=== PATIENT | male | born 1945 | race Caucasian/White ===

== ENCOUNTER → 2021-07-24 15:35 | Outpatient (CLI) | payer OTHER, MEDICARE, SELFPAY ==
--- NOTE | 2021-07-24 15:54 | CT_ITS ---
STUDY: CT RIGHT FEMUR WITHOUT CONTRAST REASON FOR EXAM: Male, 75 years old. OSTEOARTHRITIS RADIATION DOSAGE (If Supplied By Facility): CTDIvol = ( 18.76 ) mGy, DLP = ( 1449.93 ) mGycm TECHNIQUE: Transaxial CT imaging of the femur was performed. Sagittal and coronal images were reconstructed. 3-D images were reconstructed. Individualized dose optimization techniques were used for this CT. COMPARISON: None. FINDINGS: There is diffuse demineralization of the femur. There is mild degenerative disease at the level of the right hip. There is significant degenerative disease at the level of the knee more severe along the medial joint compartment. There is chondrocalcinosis. There is degenerative disease of the tibiofemoral joint. No significant joint effusion. The visualized proximal tibia and fibula are unremarkable. Susceptibilities made of a small fat-containing right-sided inguinal hernia. There is diffuse nonspecific stranding of the subcutaneous fat from the mid-distal thigh to the ankle. Severe soft tissue swelling at the level of the ankle along the medial and lateral aspect. Vascular calcifications consistent with peripheral arterial disease. CT/Extremity Lower without Contra IMPRESSION: Degenerative disease at the level of the knee and hip as described. Diffuse soft tissue swelling/edema from the medial distal thigh to the ankle and more severe at the ankle. No acute fracture or subluxation involving the femur, tibia and fibula. Electronically Signed: Eli Felder MD at 3:37 EST , Service support ,
== END ==
PROVIDERS: Visit Provider Orthopaedic Surgery
DX: M17.11 Unilateral primary osteoarthritis, right knee (principal)
CPT/HCPCS: 73700

== ENCOUNTER 2021-08-25 17:11 | Observation (INO) | payer OTHER, MEDICARE, SELFPAY ==
[2021-07-24 16:06] LABS: Absolute Lymphocyte Count 2.73 X10^3/uL (0.83-4.51); Absolute Neutrophil Count 4.9 X10^3/uL (2.0-7.7); Basophil# 0.05 X10^3/uL; Basophil% 0.6 % (0-1); Eosinophils% 4.6 % (0-5); Hematocrit 35.6 % (40-54); Hemoglobin 11.4 g/dL (13.0-16.5); Lymphocyte # 2.73 X10^3/ul (0.83-4.51); Lymphocyte % 31.4 % (19-41); Mean Corpuscular Hgb 29.2 pg (27.0-32.0); Mean Platelet Vol. 9.6 fl (6.2-12.0); Monocyte# 0.61 X10^3/uL; NRBC Flagged by Analyzer 0 % (0-5); Neutrophil # 4.88 X10^3/uL (2.7-7.7); Neutrophil % 56.1 % (47-70); Platelet Count 284 K/mm3 (150-450); RBC Distribution Width CV 13.4 % (11.6-14.6); RBC Distribution Width SD 45.4 fl (35.1-43.9); Red Blood Count 3.91 M/mm3 (4.6-6.2); White Blood Count 8.7 K/mm3 (4.4-11.0)
[2021-07-24 16:32] LABS: Albumin, Serum 3.6 g/dL (3.2-5.0); Anion Gap 5 (5-15); BUN 36 mg/dL (7-18); BUN/Creat Ratio 20.9 RATIO (10-20); Calcium,Total 9.3 mg/dL (8.5-10.1); Chloride 107 mmol/L (98-107); Creatinine, Serum 1.72 mg/dL (0.70-1.30); EST Glomerular Filtration Rate 41 mL/min (>60); Est Glom Filt Rate - Afr Amer 50 mL/min (>60); Glucose 93 mg/dL (74-106); Potassium 4.4 mmol/L (3.5-5.1); Sodium Level 137 mmol/L (136-145)
[2021-07-24 16:44] LABS: Hemoglobin A1c 5.4 % (3.8-5.6)
[2021-08-25] VITALS (16 sets, daily range): BP systolic 121–159; BP diastolic 64–102; PULSE 68–89; RESP 16–18; TEMP 36.1–37.1; O2SAT 95–100; BMI 30.8
[2021-08-25] MEDS: Acetaminophen 500 MG Tablet 1000 MG PO ×3 (07:32→23:01)
[2021-08-25] MEDS: Scopolamine 1mg/72hr Patch 1 PATCH TD (07:36)
[2021-08-25] MEDS: Lactated Ringers 1,000 ML 15 ML IV (07:40)
--- NOTE | 2021-08-25 07:50 | RAD_ITS ---
STUDY: X-RAY - RIGHT KNEE REASON FOR EXAM: Male, 75 years old. New total knee arthroplasty. TECHNIQUE: 2 view(s) of the knee. COMPARISON: None. FINDINGS: There is a 3 component total knee arthroplasty in anatomic position. There are expected post-operative findings. There are no complications. No other significant abnormality is identified. RAD/Knee 1 or 2 Views IMPRESSION: Total knee arthroplasty in anatomic alignment without complications. Electronically Signed: Miguel Adamson MD at 13:55 EST , Service support ,
--- NOTE | 2021-08-25 09:10 | KNEE_PTH ---
PATIENT: JOSH GREENFIELD LOC: MS3 U#:[id number] AGE/SX: 75/M ROOM: [facility] RE08/25/[address]: Dr. Gerald Villalobos MD : 1945 BED: 1 DIS: 08/27/2021 SPEC #: [id number] RECD: 08/25/21 13:27 STATUS: MIKE MARLENE #: [id number] DHAVAL: 08/25/21 09:[address]: Júnior Guzman DEPT: SURGICAL PATHOLOGY RECD BY: Elvia Walker Tissues: Knee, NOS Procedures: Decalcification bone/plaque Surgery Specimen Level IV HEADER OPERATION: ERAS, total knee replacement robotic arm assist PRE-OP DIAGNOSIS: Primary osteoarthritis TISSUE SUBMITTED: Right knee bone MICROSCOPIC DIAGNOSIS Right knee bone, total knee replacement/resection: Pieces of bone with degenerative osteoarthritic changes. Fibroadipose tissue and fibroconnective tissue. SJ:elder 08/31/2021 MICROSCOPIC DESCRIPTION Slides are reviewed. GROSS DESCRIPTION Received is one container designated right knee bone. The specimen consists of multiple fragments of jorgensen-yellow bone measuring in aggregate 16 x 9 x 1.8 cm. Also in the specimen container are multiple fragments of yellow-white soft tissue measuring in aggregate 2 x 1 x 0.2 cm. A number of bony fragments contain articular surfaces consistent with tibial plateau and femoral condyle and displaying prominent osteophyte formation, eburnation, and bone erosion. [employer] Boat [employer] sections are submitted in two cassettes as follows: 1 - soft tissue, 2 - bone after decalcification. / AM:elder 08/25/21 TC:5 CPT: 68062, 27319
--- NOTE | 2021-08-25 10:21 | PCM.OPRPT ---
Report of Operation Date of Procedure: 08/25/21 Pre-Operative Diagnosis: OA right knee Post-Operative Diagnosis: same Surgery/Procedure Performed:: Right TKR Description of Surgical Findings:: Report of Operation Date of Procedure: 08/25/21 Preoperative Diagnosis: [ right ] knee primary osteoarthritis Postoperative Diagnosis: [right ] knee primary osteoarthritis Operation: Robotic Assisted Knee Total Arthroplasty, [right ] knee Surgeon: Dr Júnior Guzman DO [employer] Custodian: Miguel Mcdonnell PA-C Anesthesia: spinal Anesthesiologist: Peter Chaves M.D. Findings: Stable knee with good patella tracking Specimen(s): Bony cuts Complications: No intraoperative complications Estimated Blood Loss: 20 cc IV Fluids: 1000 cc crystalloid Implants Used: 1. Janessa Triathlon press-fit CR size 5 femur 2. [place] Triathlon size 6 tibia 3. 38 mm patella 4. 9 mm CS polyethylene Brief History Operative Indications: [ (75 y/o male) ] with history of [right ] knee osteoarthrosis with radiographic findings with loss of joint space, osteophyte formation and subchondral sclerosis. Failed conservative measures as mentioned in the H&P. Discussion of total knee arthroplasty as well as risk and benefits were discussed with the patient including but not limited to blood loss, DVTs, PEs, neurovascular damage, general risk of anesthesia including loss of life, and stiffness or instability were also discussed with the patient. Patient demonstrated understanding and was able to sign informed consent. Procedure: On the date of procedure, patient's [right ] lower extremity was marked in the preoperative area. The patient was then taken back to the operating room where that patient was placed on the table in the supine position. All bony prominences were identified and well-padded. Anesthesia assumed control of the C-spine and airway throughout the remainder of the procedure. A tourniquet was placed on the [ right ] upper thigh and the leg was prepped in a sterile fashion. The surgeon then scrubbed at this time. Upon reentering the room, the [ right ] lower extremity was draped in a standard orthopedic fashion. A timeout was then called and everyone agreed upon the side, the site, the procedure to be performed, patient's identity and antibiotics given. Esmarch bandage was used to exsanguinate the extremity and the tourniquet was placed up to 250 mmHg with the knee in flexion. A midline skin incision was made and a sharp dissection was taken down through skin, subcutaneous tissue and fat. The standard medial parapatellar incision was made and the patella was subluxed laterally. An appropriate deep MCL release was done and the fat pad was resected. Our attention was then directed to the patella. The patella was everted and a flat resection was made. The knee was then flexed up and 2 femoral pins were placed inside the incision and 2 tibial pins were placed outside the incision in the medial tibia bicortically. Once this was completed, the 2 checkpoints in the femur and tibia were placed. Knee was then flexed up and the bony landmarks were registered. Once the was completed, the knee taken through range of motion and manually stressed allowing us to plan for an appropriate tibial cut. The robotic arm was brought into the field sterilely and checkpoint and saw were registered. Based on the patient's deformity, the tibial cut was made in [2 degrees varus ]. At this time, the tensioner was then placed in the joint and ligament tension was checked at 90 degrees and full extension. Based on the patient's ligamentous tension, appropriate adjustments were made to the operative plan and ligament releases were done. Once we were happy with our operative plan with balanced flexion and extension gaps, our attention was directed to the femur. The robot was brought into the field sterilely and registered. Posterior condylar cuts, anterior chamfer cuts and anterior cuts were appropriately made for a [size 5 ] femur. When these were completed, the saws were switched out in the distal femoral and posterior chamfer cuts were made. Protecting the soft tissue throughout this time. A [ size 6 ] base plate was selected. The knee was flexed to 90 degrees and soft tissues and posterior osteophytes were removed from the joint. 40 cc of the periarticular injection was injected into the posterior medial corner of the joint. The appropriate trials were then placed on the femur and tibia. A trial polyethylene was trialed to ensure proper balancing and stability of the knee. The appropriate tibial internal rotation was then marked with a bovie. Our attention was then directed to the patella. The lug holes were drilled and the patella trial was placed. Patellar tracking was checked and deemed appropriate. Once we were happy, lug holes were drilled for the femur and trial components were removed. The tibia was subluxed and pinned into place and the keel was punched and drilled appropriately. Final components were verified and opened. The wound was copiously irrigated with normal saline. The components were impacted into place with the tibia, femur and finally the patella. The trial poly component was placed and the knee was placed in full extension. The tracking, alignment and balance were verified and a [9 mm CS ] polyethylene component was placed. Once the final components were placed an Irrisept lavage was performed and the wound was copiously irrigated with normal saline solution and the periarticular injection was given. the wound was closed in a layer-krishna fashion using #1 vicryl interrupted sutures for the arthrotomy, 2-0 interrupted vicryl suture for the subcuticular layer and remington for final skin closure. A sterile compressive dressing was then placed. The patient was then awakened from anesthesia, transferred to the [place] and transferred to the PACU for recovery. My physician assistant director of residence life was a vital part of this case. He was important in appropriate retraction during the case, and protection of soft tissues during bony cuts. His intimate knowledge of the case and my steps aided in safe and expedient completion of the procedure as well as appropriate position of the leg during the case. He was also vital in assisting with closure under my direct supervision. Due to the complexity of this case, robotic arm was used to assist in the surgery to improve accuracy and clinical outcomes. Post-op Plan: DVT ppx; ASA 81 mg BID, thigh high compression stockings Follow up: in office in 2 weeks for wound check PT: to start POD #0 at hospital, outpatient PT should be arranged. Preoperative antibiotic: Ancef 2 grams IV Júnior Guzman DO Surgeon: Júnior Guzman hem inspector: Miguel Mcdonnell Type of Anesthesia: Spinal Anesthesiologist: Peter Chaves Estimated Blood Loss (mL): 20 cc Fluids Replaced: 1000 cc crystalloid Admit VTE Documentation VTE Present on Admission: No VTE Mechan Device Prophylaxis: SCD's and Thigh High LITZY Hose VTE Pharm Prophylaxis ordered?: Yes
[2021-08-25 10:26] LABS: Bedside Glucose 77 mg/dL (70-110)
[2021-08-25] MEDS: Lactated Ringers 1,000 ML 125 ML IV (11:32)
[2021-08-25] MEDS: 0.9% Normal Saline 1,000 ML 100 ML IV (19:15)
[2021-08-26] MEDS: Acetaminophen 500 MG Tablet 1000 MG PO ×3 (05:48→21:54)
[2021-08-26] MEDS: oxyCODONE 5 MG Tablet PO ×2 (05:49→10:10)
--- NOTE | 2021-08-26 06:37 | PCM.PN.ORT ---
Subjective Subjective Doing well this morning. Stayed yesterday due to pain in the left knee and somnolence. Much better on both counts today. Objective Data Objective Data Vital Signs: Vital Signs Temp Pulse Resp BP Pulse Ox 98.4 F 88 16 148/76 H 98 08/25/21 22:41 08/25/21 22:41 08/25/21 22:41 08/25/21 22:41 08/25/21 22:41 Oxygen Flow Rate (L/min) 4 Oxygen Delivery Method Room Air Weight: 202 lb 13.204 oz Body Mass Index (BMI) 30.8 Intake & Output: Intake and Output for Last 24 Hours 08/24/21 08/25/21 08/26/21 23:59 23:59 23:59 Intake Total 2435.5 / 2435.5 1000 / 1000 Output Total 450 / 450 250 / 250 Balance 1985.5 / 1985.5 750 / 750 Lab / Micro Data Result Diagrams: 07/24/21 15:38 07/24/21 15:38 Labs: Laboratory Results - last 24 hr 08/25/21 07:10: POC Glucose 77 08/25/21 07:15: Magnesium 2.0 Micro: Microbiology 07/24/21 15:38 Swab (Method) Nasal Screen MRSA/MSSA - Final Radiography Diagnostic Testing: Radiology Impression Knee X-Ray 08/25/21 07:50 IMPRESSION: Total knee arthroplasty in anatomic alignment without complications. Electronically Signed: Miguel Adamson MD at 13:55 EST , Service support , Physical Exam Const alert and oriented x3 Constitutional Narrative: Sitting up in chair eating breakfast. General Appearance: cooperative Extremity normal capillary refill, no clubbing, cyanosis or edema and no calf tenderness Extremity Narrative: Negative Leonor's sign Right Lower Extremity: knee joint inspection (Mildly swollen as expected), neurovascular exam (intact) and special tests Neuro no sensory deficits noted Assessment & Plan Assessment/Plan (1) History of pain when walking: PLAN: PT this morning. Discharge this PM
[2021-08-26 09:24] VITALS: BP 123/68; PULSE 78; RESP 20; TEMP 37.3; O2SAT 98
[2021-08-26 11:50] VITALS: O2SAT 98
--- NOTE | 2021-08-26 13:22 | CASEMGMT ---
EDGAR BROOKE Assessment: Face to Face with pt for initial transition planning/care coordination assessment. EDGAR BROOKE introduced self and role at [facility], pt voices understanding and consents to assessment. Pt is A/O x4 and answers all questions appropriately at this time. Pt sitting up in chair with at bedside in no distress. Care providers, pharmacy, and demographics verified/updated. Admitting Dx: R TKR with Greg PCP:Garrett Specialists:Megan, ortho; Peggy and Henrietta, cardio Preferred Pharmacy: [facility] Retail Insurance: Aetna, Aetna MCR Prescription Benefit: yes LW/HPOA: Pt denies having a LW/DPOA and denies need for info regarding AD. LNOK: Dang Charlton, ; Shanda Gonsales, dtr Living Arrangements: Pt lives with in a two story house with 3 steps to enter with grab bars. Pt reports he was I in ADL's and denies concerns at home. Transportation: Pt drives self and denies concerns with transportation. Pt will transport pt to therapy. DME/HHC/SNF: Pt has a FWW, polar care and grab bars in the bathroom. Pt denies hx of HHC or SNF stays. Pt states no concerns with going home at time of dc. He has outpt therapy set up tomorrow at [facility] in [place]. Pt states no further concerns/needs. CM to follow. Advised pt to ask CM if any further question/concerns/needs arise, voices understanding. Pt Goal: Home with outpt therapy set up Plan: Home with outpt therapy set up
--- NOTE | 2021-08-26 15:33 | CASEMGMT ---
Social Work Note PT/OT updated this worker that pt cannot safely go home, pt needs SNF. SW in to speak with pt and pt's Dang. SW introduced self and role at [facility]. SW spoke with pt and Dang regarding SNF. Dang states they live [place] which is about [place] hours away from [place]. Dang states preferred provider would be [facility] in [place], [place]. Dang states it is an actual rehab facility and not a SNF. VINH explained that typically it is more difficult for pt's to get into rehab facilities as they have to have a qualifying diagnosis and pt's insurance likely will not approve inpatient rehab. Dang states next choice would be [facility] in [place], [place] which is a halfway. Third choice [facility] be [facility]. [facility] contact information [facility] [address] [place] [phone] Admission Director: Lorna. Referral has been faxed to [facility]. Plan: [facility] pending acceptance and pre-cert Anjali Schroeder SALES AND MARKETING EXECUTIVE, CREDIT CORRESPONDENCE CLERK
[2021-08-26 15:56] VITALS: BP 137/74; PULSE 103; RESP 16; TEMP 36.6; O2SAT 99
--- NOTE | 2021-08-26 16:04 | NURSING ---
Addendum entered by Angelina Seay 08/26/21 16:22: if you talk to him pt will have a conversation. Neuro checks performed and pt is A&Ox3. No neuro deficits noted. Francia Garnica, Charge Nurse also in to see pt. Megan Castro tried to call this nurse and got cut off. This nurse attempted to call Dr. Guzman back via the paddle dyeing machine operator and have not heard back. this nurse going to bladder scan pt and if Alfonso or Dr. Guzman do not call back, this nurse will attempt to get a hold of them again. Original Note: wanted to speak with this nurse. waiting in hallway in tears. Pt drowsy but awakens easily. states an hour after he took the 5mg oxycodone pain medicine that he was not as alert as he was this morning. This nurse does agree with . Pt mumbling, eyes closed, appears to be sleeping but if you talk to him
--- NOTE | 2021-08-26 16:25 | NURSING ---
Bladder scanned for 324 at this time. Alfonso Elizabeth here at this time.
--- NOTE | 2021-08-26 16:35 | NURSING ---
aware Dr. Maciel sent text by Angelina Garcia RN regarding consult. aware per erik gonzalez, he will also talk with dr. maciel
--- NOTE | 2021-08-26 16:42 | CASEMGMT ---
Social Work Note SW received message from Summer at [facility] stating pt's insurance will not pay for acute rehab as pt doesn't meet criteria for inpatient rehab. SW will make referral to [facility] (SNF) tomorrow. SW to continue to follow. Plan: SNF pending acceptance and pre-cert Anjali Schroeder EMERGENCY VEHICLE OPERATOR, TIRE LAYER
[2021-08-26 16:48] VITALS: BMI 30.8
[2021-08-26 17:11] LABS: Absolute Neutrophil Count 8.7 X10^3/uL (2.0-7.7); Basophil# 0.04 X10^3/uL; Basophil% 0.4 % (0-1); Eosinophil# 0.07 X10^3/uL; Eosinophils% 0.7 % (0-5); Hematocrit 28.1 % (40-54); Hemoglobin 9.4 g/dL (13.0-16.5); Lymphocyte % 9.3 % (19-41); Mean Corp Hgb Conc 33.5 g/dL (32-36); Mean Corpuscular Hgb 29.6 pg (27.0-32.0); Mean Corpuscular Volume 88.4 fL (80-94); Mean Platelet Vol. 9.5 fl (6.2-12.0); Monocyte# 0.89 X10^3/uL; Monocyte% 8.3 % (0-10); NRBC Flagged by Analyzer 0 % (0-5); Neutrophil # 8.71 X10^3/uL (2.7-7.7); Neutrophil % 81.1 % (47-70); Platelet Count 188 K/mm3 (150-450); RBC Distribution Width CV 12.6 % (11.6-14.6); Red Blood Count 3.18 M/mm3 (4.6-6.2); White Blood Count 10.7 K/mm3 (4.4-11.0)
--- NOTE | 2021-08-26 17:13 | EKG12_ITS ---
Test Reason : Blood Pressure : / mmHG Vent. Rate : 108 BPM Atrial Rate : 108 BPM P-R Int : 170 ms QRS Dur : 150 ms QT Int : 370 ms P-R-T Axes : 036 001 144 degrees QTc Int : 495 ms Sinus tachycardia Left bundle branch block Abnormal ECG Confirmed by ANEESH HOLDER, ARY ([id number]), assistant film editor MARC LANGLEY ([id number]) on 08/31/2021 10:28:34 AM Referred By: Júnior Guzman Confirmed By:ARY MELENDREZ MD
[2021-08-26 17:24] LABS: Anion Gap 8 (5-15); BUN 40 mg/dL (7-18); BUN/Creat Ratio 22.2 RATIO (10-20); Calcium,Total 8.9 mg/dL (8.5-10.1); Chloride 106 mmol/L (98-107); EST Glomerular Filtration Rate 39 mL/min (>60); Est Glom Filt Rate - Afr Amer 47 mL/min (>60); Estimated Creatinine Clearance 34.31 ml/min; Glucose 131 mg/dL (74-106); Potassium 4.5 mmol/L (3.5-5.1); Sodium Level 135 mmol/L (136-145)
[2021-08-26 18:00] VITALS: TEMP 37.8
--- NOTE | 2021-08-26 18:36 | NURSING ---
Pt with temp of 100.1. cold wash applied to neck and head. Gave pt I.S and made pt use at this time. Family in room with pt
--- NOTE | 2021-08-26 19:46 | PCS.PANDOC ---
PANDEMIC DOCUMENTATION INITIATED: Date: 04/20/2021 Time: 190
--- NOTE | 2021-08-26 20:25 | CON.PCM.HO_ITS ---
Assessment & Plan Assessment/Plan (1) Postoperative delirium: PLAN: Postoperative delirium Patient appears to have reacted to gabapentin and oxycodone therefore would avoid opiates except in low doses when highly needed Encourage PT and 3 meals daily Incentive spirometry coaching frequently. Does not exhibit focal deficits He has improved significantly from earlier today. EKG reviewed by me, no ST elevations. Is not appear septic at this time - if the patient develops temperatures of 100.4 on multiple checks would initiate a septic work-up with urine cultures blood cultures and chest x-ray Avoid nighttime interruptions for good sleep Continue to encourage visitors Hypertension - continue Beta dedra and valsartan HLD- Continue crestor Hx of Gout - Continue Feboxutat Normocytic Anemia - Likely chronic in nature - Monitor in outpatient setting HPI Consult Data Date of Consult: 08/26/21 HPI Narrative HPI Narrative: JOSH GREENFIELD, is a 75 M who is hospitalized after undergoing a total knee replacement yesterday. The patient does have a history of mild coronary artery disease and HTN. (organic chemistry professor recommended angiogram in 3-5 years per pt_) The patient had a successful knee replacement. He was given gabapentin 1 dose here in the hospital, and did receive 10 mg oxycodone for pain management. Today he was planned to be discharged however he was acting altered and his speech was garbled and so there was concern about possible etiologies and medication interactions versus a stroke. Patient does state that he does not use opiates or gabapentin at home and he did have a reaction to gabapentin in the past when he took 1 dose at home. Only pain medicine he uses at home is Tylenol. Does not smoke tobacco or drink heavily The patient's family history is reviewed but he does not have anything that is contributory to his current problem [facility] Medical History (Updated 08/26/21 @ 20:[address] Stiven Cazares MD) Alcohol use Arthritis Back pain Cancer Cardiology follow-up encounter High cholesterol History of edema History of pain when walking History of renal disease History of stress test Hypertension Injury of head and neck Loss of hearing Pain Smoker Wears glasses Home Medications Beet Root 2 cap PO/SL DAILY 08/03/21 [History Last Taken Unknown] Collagen Powder 1 dose pk PO/SL DAILY 08/03/21 [History Last Taken Unknown] ascorbic acid (vitamin C) [Vitamin C] 500 mg PO DAILY 08/03/21 [History Last Taken Unknown] cholecalciferol (vitamin D3) [Vitamin D3] 50 mcg PO DAILY 08/03/21 [History Last Taken Unknown] febuxostat 40 mg PO QHS 08/03/21 [History Last Taken Unknown] metoprolol tartrate 25 mg PO QHS 08/03/21 [History Last Taken Unknown] rosuvastatin [Crestor] 20 mg PO QHS 08/03/21 [History Last Taken Unknown] valsartan 20 mg PO QHS 08/03/21 [History Last Taken Unknown] vitamin B complex 1 cap PO DAILY 08/03/21 [History Last Taken Unknown] Allergy/AdvReac Type Severity Reaction Status Date / Time gabapentin AdvReac LOOPY Verified 08/25/21 07:27 scopolamine AdvReac Other Verified 08/25/21 17:20 Surgical History (Updated 08/03/21 @ 15:24 by Suma Reynolds) History of cardiac catheterization History of carpal tunnel surgery of left wrist History of carpal tunnel surgery of right wrist History of incision and drainage Hx of bladder repair surgery Hx of colonoscopy Hx of hernia repair Hx of left knee surgery Hx of right knee surgery Social History Smoking Status: Current some day smoker tobacco type: cigars ROS ROS Narrative no fevers, did have chills and sweats No CP, SOB, palpations, hematuria, cough, numbness or tingling or trouble seeing hearing swallowing, no seizures. Did have recent confusion. No trouble with thyroid problems. Physical Exam Narrative Pleasant interactive and fully aware of his surroundings and our conversation. Const alert General Appearance: cooperative HEENT normocephalic Eyes PERRL Eyes Narrative: Pupils round and equally reactive to light. Neck no lymphadenopathy Resp normal respiratory effort and clear to auscultation bilaterally Cardio regular rate and regular rhythm GI normal to inspection, nondistended, normoactive bowel sounds Extremity normal to inspection Neuro Neuro Narrative: Normal upper extremity strength with no tremors. Sensorium / Orientation: awake and alert Psych affect normal Lab / Micro Data Result Diagrams: 08/26/21 16:30 08/26/21 16:30 Labs: Laboratory Results - last 24 hr 08/26/21 16:30: WBC 10.7, RBC 3.18 L, Hgb 9.4 L, Hct 28.1 L, MCV 88.4, MCH 29.6, MCHC 33.5, RDW Std Deviation 41.0, RDW Coeff of Emilio 12.6, Plt Count 188, MPV 9.5, Immature Gran % (Auto) 0.200, Neut % (Auto) 81.1 H, Lymph % (Auto) 9.3 L, [place] % (Auto) 8.3, Eos % (Auto) 0.7, Baso % (Auto) 0.4, Absolute Neuts (auto) 8.7 H, Absolute Lymphs (auto) 1.00, Nucleated RBC % 0 08/26/21 16:30: Sodium 135 L, Potassium 4.5, Chloride 106, Carbon Dioxide 21.0, Anion Gap 8, BUN 40 H, Creatinine 1.80 H, Estim Creat Clear Calc 34.31, Est GFR (MDRD) Af Amer 47 L, Est GFR (MDRD) Non-Af 39 L, BUN/Creatinine Ratio 22.2 H, Glucose 131 H, Calcium 8.9
[2021-08-26 21:51] VITALS: BP 156/72; PULSE 93; RESP 18; TEMP 37.2; O2SAT 100
[2021-08-27 02:48] VITALS: BP 145/72; PULSE 87; RESP 18; TEMP 36.6; O2SAT 96
[2021-08-27] MEDS: Acetaminophen 500 MG Tablet 1000 MG PO ×2 (06:41→13:55)
--- NOTE | 2021-08-27 07:41 | PCM.PN.ORT ---
Subjective Subjective Patient sitting at bedside. Patient is alert and oriented. Patient has no complaint at this time. Patient states pain is been well managed without the use of narcotics. Patient feels the narcotics made him very confused. Patient states he is ready for discharge home today. Patient denies chest pain, shortness of breath, calf pain, nausea vomiting. Objective Data Objective Data Vital Signs: Vital Signs Temp Pulse Resp BP Pulse Ox 97.9 F 87 18 145/72 H 96 08/27/21 02:48 08/27/21 02:48 08/27/21 02:48 08/27/21 02:48 08/27/21 02:48 Oxygen Flow Rate (L/min) 4 Oxygen Delivery Method Room Air Weight: 92 kg Body Mass Index (BMI) 30.8 Intake & Output: Intake and Output for Last 24 Hours 08/25/21 08/26/21 08/27/21 23:59 23:59 23:59 Intake Total 2435.5 / 2435.5 1600 / 1600 Output Total 450 / 450 550 / 550 825 / 825 Balance 1985.5 / 1984.5 1050 / 1050 -825 / -825 Lab / Micro Data Result Diagrams: 08/26/21 16:30 08/26/21 16:30 Labs: Laboratory Results - last 24 hr 08/26/21 16:30: WBC 10.7, RBC 3.18 L, Hgb 9.4 L, Hct 28.1 L, MCV 88.4, MCH 29.6, MCHC 33.5, RDW Std Deviation 41.0, RDW Coeff of Emilio 12.6, Plt Count 188, MPV 9.5, Immature Gran % (Auto) 0.200, Neut % (Auto) 81.1 H, Lymph % (Auto) 9.3 L, [place] % (Auto) 8.3, Eos % (Auto) 0.7, Baso % (Auto) 0.4, Absolute Neuts (auto) 8.7 H, Absolute Lymphs (auto) 1.00, Nucleated RBC % 0 08/26/21 16:30: Sodium 135 L, Potassium 4.5, Chloride 106, Carbon Dioxide 21.0, Anion Gap 8, BUN 40 H, Creatinine 1.80 H, Estim Creat Clear Calc 34.31, Est GFR (MDRD) Af Amer 47 L, Est GFR (MDRD) Non-Af 39 L, BUN/Creatinine Ratio 22.2 H, Glucose 131 H, Calcium 8.9 Micro: Microbiology 07/24/21 15:38 Swab (Method) Nasal Screen MRSA/MSSA - Final Physical Exam Narrative Exam, I found patient sitting at bedside. Patient was alert and oriented to time person place. Patient's alertness and level of consciousness improved considerably from yesterday. Patient has good fine motor control. Patient has no neurological deficit. Patient's dressing is clean dry intact. Patient has no calf pain or signs or symptoms of DVT. Patient has no shortness of breath, speaking in full sentences. Patient appears to be resting comfortably. Const alert and oriented x3 Eyes PERRL Neuro CN's II-XII intact bilaterally Psych mental status grossly normal and affect normal Assessment & Plan Assessment/Plan (1) Status post total right knee replacement not using cement: PLAN: 1. Patient will continue use Tylenol extra strength 1000 mg every 8 hours. Patient will be given a prescription for Ultram 50 mg 1 or 2 p.o. every 6 hours for severe pain 2. Aspirin 81 mg 1 p.o. every 12 hours x30 days for postop DVT prophylaxis 3. Patient will be discharged home today 4. Continue outpatient physical therapy 5. Follow-up as scheduled, see pink sheet
--- NOTE | 2021-08-27 07:48 | EX.PCM.DISCH ---
Discharge Instructions Diet Discharge Diet: No restrictions Activity Discharge Activity: May Not Drive, May Shower and Use Walker May shower in (days): 3 May resume sexual activity in: No Restrictions Ice area for (Minutes): 30 (every hour while awake.) Weight Bearing Status: Weight bearing as tolerated Keep extremity elevated above heart level: Operative Extremity Dressing / Incision Call your doctor if your incision/area has: Continuous Slow Oozing, Sudden Increased Bleeding, Increased Pain/ Swelling, Increased Redness and Foul Smelling Discharge Call your doctor if you observe: Fever of 101 or Higher, Coldness, Increased Pain, Numbness or Tingling, Change in Color, Shortness of breath, Calf discomfort and Uncontrolled pain Change Dressing in: leave in place till F/U Remove Dressing in: leave in place till F/U Follow Up Care Please Follow Up With: Miguel Mcdonnell PA-C When: Please call [phone] to schedule a follow up appointment. Test Results: Test results from this visit will be discussed in further detail at your follow-up appointment, if applicable. Discharge Plan Admission Admit Date/Time: 08/25/21 17:11 Attending Provider: Gerald Villalobos Consulting Providers: Stiven Cazares Discharge Orders/Prescriptions Prescriptions: New tramadol [Ultram] 50 mg tablet 50 mg PO Q6H PRN (Reason: pain) 7 Days Qty: 1 RF: 0 acetaminophen 500 mg Tablet 1,000 mg PO Q8 7 Days Qty: 42 RF: 0 Continued ascorbic acid (vitamin C) [Vitamin C] 500 mg Tablet 500 mg PO DAILY RF: 0 vitamin B complex Capsule 1 cap PO DAILY RF: 0 valsartan 40 mg Tablet 20 mg PO QHS RF: 0 rosuvastatin [Crestor] 20 mg Tablet 20 mg PO QHS RF: 0 metoprolol tartrate 25 mg Tablet 25 mg PO QHS RF: 0 cholecalciferol (vitamin D3) [Vitamin D3] 25 mcg (1,000 unit) Tablet 50 mcg PO DAILY RF: 0 febuxostat 40 mg Tablet 40 mg PO QHS RF: 0 Beet Root 2 cap PO/SL DAILY RF: 0 Collagen Powder 1 dose pk PO/SL DAILY RF: 0 Referrals / Follow Up: [facility] [Other] Disposition Disposition (needs filled in before D/C Order can be placed): Home, Self Care
[2021-08-27 08:32] VITALS: BP 126/70; PULSE 92; RESP 18; TEMP 37; O2SAT 97
--- NOTE | 2021-08-27 08:50 | NURSING ---
Called Alfonso Elizabeth as Alfonso told this nurse he was going to give pt ultram for prescription for home which he did but this nurse thought he was going to give order for ultram here as well.
--- NOTE | 2021-08-27 09:26 | CASEMGMT ---
Social Work Note PT/OT updated this worker and RN CM that pt did much better with therapy today, pt is able to safely discharge home today. Anjali Schroeder [employer]DER, [employer]LECT[employer]ATING SALES REPRESENTATIVE
[2021-08-27] MEDS: traMADol 50 MG Tablet PO (10:06)
[2021-08-27] MEDS: 0.9% Normal Saline 1,000 ML 250 ML IV (10:10)
--- NOTE | 2021-08-27 12:14 | PCM.PN.HOSP ---
Documented by User: Jareth HARRISON 08/27/21 12:23 Subjective Subjective Patient is a 75-year-old male comfortably resting in bed, alert and orient x3. Patient denies development of any new symptoms overnight. Does not appear in acute distress. Objective Data Objective Data Vital Signs: Vital Signs Temp Pulse Resp BP Pulse Ox 98.6 F 92 18 126/70 H 97 08/27/21 08:32 08/27/21 08:32 08/27/21 08:32 08/27/21 08:32 08/27/21 08:32 Oxygen Flow Rate (L/min) 4 Oxygen Delivery Method Room Air Weight: 202 lb 13.204 oz Body Mass Index (BMI) 30.8 Intake & Output: Intake and Output for Last 24 Hours 08/25/21 08/26/21 08/27/21 23:59 23:59 23:59 Intake Total 2435.5 / 2435.5 1600 / 1600 Output Total 450 / 450 550 / 550 825 / 825 Balance 1985.5 / 1984.5 1050 / 1050 -825 / -825 Lab / Micro Data Result Diagrams: 08/26/21 16:30 08/26/21 16:30 Labs: Laboratory Results - last 24 hr 08/26/21 16:30: WBC 10.7, RBC 3.18 L, Hgb 9.4 L, Hct 28.1 L, MCV 88.4, MCH 29.6, MCHC 33.5, RDW Std Deviation 41.0, RDW Coeff of Emilio 12.6, Plt Count 188, MPV 9.5, Immature Gran % (Auto) 0.200, Neut % (Auto) 81.1 H, Lymph % (Auto) 9.3 L, [place] % (Auto) 8.3, Eos % (Auto) 0.7, Baso % (Auto) 0.4, Absolute Neuts (auto) 8.7 H, Absolute Lymphs (auto) 1.00, Nucleated RBC % 0 08/26/21 16:30: Sodium 135 L, Potassium 4.5, Chloride 106, Carbon Dioxide 21.0, Anion Gap 8, BUN 40 H, Creatinine 1.80 H, Estim Creat Clear Calc 34.31, Est GFR (MDRD) Af Amer 47 L, Est GFR (MDRD) Non-Af 39 L, BUN/Creatinine Ratio 22.2 H, Glucose 131 H, Calcium 8.9 Micro: Microbiology 07/24/21 15:38 Swab (Method) Nasal Screen MRSA/MSSA - Final Physical Exam Const alert, oriented x3 and no apparent distress HEENT head/scalp atraumatic and moist oral mucous membranes Head and Scalp: normocephalic Eyes PERRL, EOMs intact bilaterally and conjunctivae normal Neck no lymphadenopathy, supple and no JVD Resp normal respiratory effort, no retractions, no use of accessory muscles and clear to auscultation bilaterally Cardio regular rate, regular rhythm, no murmurs and no JVD GI normal to inspection, nondistended, normoactive bowel sounds, soft to palpation and non-tender Extremity normal to inspection, full ROM and no clubbing, cyanosis or edema Skin no rashes or lesions noted, no wounds, skin turgor normal and no jaundice Neuro CN's II-XII intact bilaterally Psych affect normal Assessment & Plan Assessment/Plan (1) Status post total right knee replacement not using cement: (2) Postoperative delirium: PLAN: Patient is a 75-year-old male who presents the hospital medicine service on consult from orthopedics status post right knee total arthroplasty for right knee osteoarthritis. 1) Postoperative delirium Resolved, work-up at time of delirium was unremarkable. Recommend opiates only low doses. 2) HTN Stable, continue beta-dedra and valsartan. 3) hyperlipidemia Continue Crestor. 4) gout Continue from Oxistat. 5) normocytic anemia Hemoglobin currently 9.4. Likely due to postoperative blood loss. Unsure of chronic given the lack of previous records. 6) elevated creatinine Creatinine currently 1.8, likely due to intraoperative fluid loss. Fluid bolus ordered. 7) Right knee osteoarthritis S/P TRKA. Management per orthopedics. Patient seen by Jareth Crouch PA-C, under the supervision of Dr. Villalobos. Documented by User: Dr. Gerald Villalobos MD 08/27/21 15:26 Objective Data Lab / Micro Data Result Diagrams: 08/26/21 16:30 08/26/21 16:30 Charges/Coding Addendum Addendum: Dr. Villalobos: I personally reviewed the chart and examined the patient, and agree with the above findings. 75-year-old male present to the hospital for elective knee repair. Medicine was consulted secondary to postoperative delirium. His gabapentin was discontinued his oxycodone dosage was decreased. This morning this is completely resolved. He did receive some fluid secondary to a slight rise in his creatinine from 1.72 to 1.8. Medically he is cleared for discharge I do recommend that he follow-up with his PCP in 3 to 5 days for outpatient evaluation and possible repeat in this BMP to monitor his renal function. Visit Charges OBSV E&M: 30383 Subsequent observation care L2
[2021-08-27 14:59] VITALS: BP 112/68; PULSE 70; RESP 18; TEMP 37.2; O2SAT 98
== END 2021-08-27 14:24 | disposition home or self-care (01) ==
LOC: SDC 08-26 10:22 → MS3 08-26 10:22
PROVIDERS: Anesthesiology; Physician Assistant; Admitting Provider Orthopaedic Surgery; Referring Provider Orthopaedic Surgery; Visit Provider Family Medicine
PROC: 0SRC0JZ Replacement of Right Knee Joint with Synthetic Substitute, Open Approach (ICD-10-PCS; CPT 27447; principal; 2021-08-25 08:40)
DX: M17.11 Unilateral primary osteoarthritis, right knee (principal); I10 Essential (primary) hypertension; H91.90 Unspecified hearing loss, unspecified ear; E78.5 Hyperlipidemia, unspecified; M10.9 Gout, unspecified; D64.9 Anemia, unspecified; F17.290 Nicotine dependence, other tobacco product, uncomplicated; Z57.4 Occupational exposure to toxic agents in agriculture; Z79.899 Other long term (current) drug therapy; F05 Delirium due to known physiological condition; R79.89 Other specified abnormal findings of blood chemistry
CPT/HCPCS: 01402; 27447; 64447; S2900; 36415; 73560; 80048; 82040; 82962; 83036; 83735; 85025; 87081; 88305; 88311; 93005; 96360; 96361; 97110; 97116; 97162; 97166; 97530; 97535; 99218; 99406; C1776; J7030; J7120; G0378